=== PATIENT | male | born 1955 | race Two or more races ===

== ENCOUNTER 2022-04-30 11:08 | Outpatient (CLI) | payer OTHER, SELFPAY ==
[2022-04-30 21:26] LABS: Albumin* 4.5 g/dL (3.3-5.0); Chloride* 99 mmol/L (96-114); Sodium* 139 mmol/L (135-149)
[2022-04-30 21:27] LABS: Potassium* 4.4 mmol/L (3.6-5.1)
[2022-04-30 21:29] LABS: Alkaline Phosphatase* 73 U/L (40-150); Aspartate Amino Transferase* 31 U/L (12-35); Bilirubin Total* 0.3 mg/dL (0.1-1.5); Blood Urea Nitrogen* 19 mg/dL (7-30); Carbon Dioxide* 29 mmol/L (20-32); Cholesterol* 132 mg/dL (90-199); Creatinine* 0.7 mg/dL (0.5-1.5); Estimated Glomerular Filt Rate 102 ml/min; Glucose* 109 mg/dL (60-115); Total Protein* 7.8 g/dL (6.0-8.3); Triglycerides* 70 mg/dL (40-149)
[2022-04-30 21:30] LABS: Calcium* 8.5 mg/dL (8.4-10.6); HDL Cholesterol* 48 mg/dL (>=40); LDL Cholesterol Calculated 70 mg/dL (<100)
[2022-04-30 21:41] LABS: Total Protein Urine 5 mg/dL
[2022-04-30 21:46] LABS: Creatinine Urine 59.9 mg/dL
[2022-04-30 21:47] LABS: Microalbumin Creatinine Ratio 10 mg/g (0-30); Microalbumin Urine 1 mg/dL
[2022-04-30 22:18] LABS: Hepatitis C Virus Antibody* Negative (Negative)
[2022-04-30 22:22] LABS: Vitamin B12* 391 pg/mL (243-894)
[2022-04-30 22:28] LABS: Alanine Aminotransferase* 27 U/L (4-50)
[2022-05-02 15:07] LABS: Folate, Serum 20.6 ng/mL (>=5.9)
== END 2022-04-30 11:09 | disposition home or self-care (01) ==
PROVIDERS: PCP Family Medicine; Visit Provider Family Medicine
DX: Z00.00 Encounter for general adult medical examination without abnormal findings (principal); E11.9 Type 2 diabetes mellitus without complications; Z13.6 Encounter for screening for cardiovascular disorders; Z79.899 Other long term (current) drug therapy; Z11.59 Encounter for screening for other viral diseases; Z77.011 Contact with and (suspected) exposure to lead
CPT/HCPCS: 80053; 80061; 82043; 82570; 82607; 82746; 83655; 84156; 86803

== ENCOUNTER 2022-09-16 08:15 | Outpatient (CLI) | payer OTHER, SELFPAY | END 2022-09-16 08:16 | disposition home or self-care (01) | PROVIDERS: PCP Family Medicine; Visit Provider Family Medicine | DX: Z00.00 Encounter for general adult medical examination without abnormal findings (principal); D64.9 Anemia, unspecified; I10 Essential (primary) hypertension; R73.03 Prediabetes; E11.9 Type 2 diabetes mellitus without complications; Z13.6 Encounter for screening for cardiovascular disorders; Z12.5 Encounter for screening for malignant neoplasm of prostate; Z77.011 Contact with and (suspected) exposure to lead | CPT/HCPCS: 80053; 80061; 83655; 84153; 86787 ==

== ENCOUNTER 2022-10-17 08:06 | Outpatient (CLI) | payer OTHER, SELFPAY | END 2022-10-17 08:07 | disposition home or self-care (01) | LOC: FRMREF 08:20 | PROVIDERS: PCP Family Medicine; Visit Provider Family Medicine | DX: Z77.011 Contact with and (suspected) exposure to lead (principal); I10 Essential (primary) hypertension; D64.9 Anemia, unspecified | CPT/HCPCS: 83655 ==

== ENCOUNTER 2023-03-25 09:38 | Outpatient (CLI) | payer OTHER, SELFPAY ==
[2023-03-25 14:03] LABS: Total Protein Urine 12 mg/dL
[2023-03-25 14:06] LABS: Creatinine Urine 53.7 mg/dL
[2023-03-25 14:10] LABS: Microalbumin Creatinine Ratio 30 mg/g (0-30); Microalbumin Urine 2 mg/dL
[2023-03-25 14:35] LABS: Vitamin B12* 453 pg/mL (243-894)
== END 2023-03-25 09:39 | disposition home or self-care (01) ==
PROVIDERS: PCP Family Medicine; Visit Provider Family Medicine
DX: E11.9 Type 2 diabetes mellitus without complications (principal); I10 Essential (primary) hypertension; D64.9 Anemia, unspecified
CPT/HCPCS: 82043; 82570; 82607; 84156

== ENCOUNTER 2023-08-23 10:32 | Outpatient (REF) | payer OTHER, SELFPAY | END 2023-08-23 10:33 | disposition home or self-care (01) | LOC: NFLDREF 10:32 | PROVIDERS: PCP Family Medicine; Referring Provider Family Medicine; Visit Provider Nurse Practitioner Family | DX: R06.02 Shortness of breath (principal) | CPT/HCPCS: 80053; 83880 ==

== ENCOUNTER 2023-09-23 11:07 | Outpatient (CLI) | payer OTHER, SELFPAY | END 2023-09-23 11:08 | disposition home or self-care (01) | PROVIDERS: PCP Family Medicine; Visit Provider Family Medicine | DX: I10 Essential (primary) hypertension (principal); E11.9 Type 2 diabetes mellitus without complications; Z13.6 Encounter for screening for cardiovascular disorders; Z12.5 Encounter for screening for malignant neoplasm of prostate; Z77.011 Contact with and (suspected) exposure to lead; Z95.2 Presence of prosthetic heart valve | CPT/HCPCS: 80053; 80061; 82043; 82570; 82607; 83655; G0103 ==

== ENCOUNTER 2023-10-13 12:50 | Outpatient (CLI) | payer OTHER, SELFPAY ==
--- NOTE | 2023-10-13 13:00 | US_ITS ---
Patient: CK KERNS Facility:?[facility] Patient ID:?[id number] Site Patient ID:?[id number]. Site :?[id number] Study:?US-Abdomen AAA SCREENING-10/13/2023 1:47:22 PM Ordering Physician:ELICEO YAP Final Report: INDICATION: Screening for abdominal aortic aneurysm. Nicotine dependence. COMPARISON: None. TECHNIQUE: Richard scale and color Doppler images were acquired of the abdominal aorta and iliac arteries. FINDINGS: Sonographic imaging demonstrates scattered calcified plaque throughout the abdominal aorta. There is no evidence of aneurysm formation. The aorta measures 2.9 cm in diameter proximally, 2.3 cm in the midportion, and tapers to 1.9 cm distally. The common iliac arteries are patent and measure 1.3 cm on the right and 1.0 cm on the left. IMPRESSION: No evidence of abdominal aortic aneurysm. Dictated by Kaley Haines MD @ 10/14/2023 2:10:30 AM Signed by:?Kaley Haines MD @10/14/2023 2:10:30 AM (Electronic Signature)
== END 2023-10-13 12:51 | disposition home or self-care (01) ==
PROVIDERS: PCP Family Medicine; Visit Provider Family Medicine
DX: Z13.6 Encounter for screening for cardiovascular disorders (principal); Z87.891 Personal history of nicotine dependence
CPT/HCPCS: 76706

== ENCOUNTER 2024-02-02 07:32 | Outpatient (CLI) | payer OTHER, SELFPAY | END 2024-02-02 07:33 | disposition home or self-care (01) | LOC: FRMREF 07:32 | PROVIDERS: PCP Family Medicine; Visit Provider Family Medicine | DX: Z13.88 Encounter for screening for disorder due to exposure to contaminants (principal) | CPT/HCPCS: 83655 ==

== ENCOUNTER 2024-03-29 08:03 | Outpatient (CLI) | payer OTHER, SELFPAY | END 2024-03-29 08:04 | disposition home or self-care (01) | LOC: FRMREF 08:04 | PROVIDERS: PCP Family Medicine; Visit Provider Family Medicine | DX: Z77.011 Contact with and (suspected) exposure to lead (principal) | CPT/HCPCS: 83655 ==

== ENCOUNTER 2024-07-01 07:17 | Outpatient (CLI) | payer OTHER, SELFPAY | END 2024-07-01 07:18 | disposition home or self-care (01) | PROVIDERS: PCP Family Medicine; Visit Provider Family Medicine | DX: Z77.011 Contact with and (suspected) exposure to lead (principal); D69.6 Thrombocytopenia, unspecified; D64.9 Anemia, unspecified | CPT/HCPCS: 83655; 85045 ==

== ENCOUNTER 2024-08-04 14:38 | Outpatient (CLI) | payer OTHER, SELFPAY | END 2024-08-04 14:39 | disposition home or self-care (01) | LOC: RAD 14:40 | PROVIDERS: PCP Family Medicine; Visit Provider Family Medicine | DX: D64.9 Anemia, unspecified (principal); Z77.011 Contact with and (suspected) exposure to lead; D69.6 Thrombocytopenia, unspecified | CPT/HCPCS: 77080 ==

== ENCOUNTER 2024-08-23 14:26 | Outpatient (CLI) | payer OTHER, SELFPAY ==
--- NOTE | 2024-08-23 14:45 | CRLHL7_ITS ---
For Patients: As a result of the Century Cures Act, medical imaging exams and procedure reports are released immediately into your electronic medical record. You may view this report before your referring provider. If you have questions, please contact your health care provider. CLINICAL HISTORY: Thrombocytopenia COMPARISON: none TECHNIQUE: Real time valdivia scale imaging and color Doppler analysis was performed of the abdomen. FINDINGS: Sonographic imaging demonstrates normal size and coarsened/increased echotexture of the liver. Main portal vein is patent with antegrade flow measuring 13.3 cm/second. Main portal vein measures 8.8 millimeters. The spleen is of normal size. The pancreas appears normal. The proximal abdominal aorta and IVC appear normal. There is no evidence of ascites. The gallbladder is of normal size and there is no evidence of sludge or stones within the gallbladder lumen. The gallbladder wall measures 3.4 mm in thickness. The common bile duct measures 3.5 mm in size within the gumaro hepatis. Simple cyst right kidney measures 15 x 14 x 15 millimeters. The right kidney measures 10.6 cm in length and the left kidney measures 11.6 cm. There is no evidence of a renal calculus or hydronephrosis. IMPRESSION: Hepatic steatosis. Incidental simple right renal cyst. Exam otherwise unremarkable. No evidence of splenomegaly. Dictated by Christiano Reed MD @ 08/23/2024 8:16:23 PM (Electronically Signed)
== END 2024-08-23 14:27 | disposition home or self-care (01) ==
LOC: US 14:27
PROVIDERS: PCP Family Medicine; Visit Provider Internal Medicine Hematology & Oncology
DX: D69.6 Thrombocytopenia, unspecified (principal); K76.0 Fatty (change of) liver, not elsewhere classified; N28.1 Cyst of kidney, acquired; D64.9 Anemia, unspecified
CPT/HCPCS: 76700

== ENCOUNTER 2024-09-07 11:30 | Outpatient (RCR) | payer OTHER, SELFPAY ==
[2024-08-17 12:28] LABS: Hematocrit 37.7 % (37.0-53.0); Hemoglobin* 11.9 gm/dL (13.5-17.5); Immature Granulocytes Abs Auto 0.00 K/uL (0.00-0.30); Immature Granulocytes Pct Auto 0.0 %; Lymphocytes Absolute Auto 1.43 K/uL (0.90-2.90); Mean Corpuscular HGB Conc 32 gm/dL (32-36); Mean Corpuscular Hemoglobin 29 pg (26-34); Mean Corpuscular Volume 92 fL (80-100); RDW Coefficient of Variation % 14.9 % (11.5-15.5); Red Blood Count 4.09 m/uL (4.30-5.90); White Blood Count* 4.91 K/uL (4.50-11.00)
[2024-08-17 12:48] LABS: Slide Review Reflex No
[2024-08-17 14:51] LABS: Immature Reticulocyte Fraction 16.7 % (2.3-13.4); Reticulocyte Hemoglobin Equivi 31.8 pg (29.0-35.0); Reticulocytes Absolute 0.07 # (0.03-0.08)
[2024-08-17 15:26] LABS: Albumin* 4.2 g/dL (3.3-5.0); Chloride* 102 mmol/L (96-114); Potassium* 5.1 mmol/L (3.6-5.1); Sodium* 139 mmol/L (135-149)
[2024-08-17 15:28] LABS: Blood Urea Nitrogen* 25 mg/dL (7-30); Creatinine* 1.2 mg/dL (0.5-1.5); Est. Creatinine Clearance* 54.32; Estimated Glomerular Filt Rate 65 ml/min
[2024-08-17 15:29] LABS: Alanine Aminotransferase* 30 U/L (4-50); Alkaline Phosphatase* 40 U/L (40-150); Anion Gap 6 mEq/L (7-15); Aspartate Amino Transferase* 38 U/L (12-35); Bilirubin Total* 0.5 mg/dL (0.1-1.5); Calcium* 9.5 mg/dL (8.4-10.6); Carbon Dioxide* 31 mmol/L (20-32); Glucose* 101 mg/dL (60-115); Total Protein* 6.7 g/dL (6.0-8.3)
[2024-08-17 16:06] LABS: HIV 1/2/P24 Combo Screen* Negative (Negative)
[2024-08-17 16:19] LABS: Vitamin B12* 518 pg/mL (243-894)
[2024-08-17 17:29] LABS: Iron* 121 ug/dL (49-181)
[2024-08-17 17:38] LABS: Percent Iron Saturation 39 % (20-50); Total Iron Binding Capacity 309 ug/dL (261-462)
[2024-08-17 19:44] LABS: Hepatitis C Virus Antibody* Negative (Negative)
[2024-08-19 06:56] LABS: Folate, Serum >22.3 ng/mL (>=5.9)
[2024-08-19 10:25] LABS: Copper, Serum/Plasma 107.6 ug/dL (70.0-140.0)
[2024-08-19 23:30] LABS: Albumin 4.59 g/dL (3.75-5.01)
== END 2025-02-13 23:59 | disposition home or self-care (01) ==
LOC: CCIC 11:30
PROVIDERS: Clinical Nurse Specialist; PCP Family Medicine; Referring Provider Family Medicine; Visit Provider Internal Medicine Hematology & Oncology
DX: D69.6 Thrombocytopenia, unspecified (principal); D64.9 Anemia, unspecified; M06.9 Rheumatoid arthritis, unspecified
CPT/HCPCS: 36415; 80053; 82525; 82607; 82668; 82728; 82746; 83540; 83550; 84165; 84443; 85025; 85045; 86703; 86803; 99204; 99214; G0463

== ENCOUNTER 2024-10-25 11:12 | Outpatient (CLI) | payer OTHER, SELFPAY | END 2024-10-25 11:13 | disposition home or self-care (01) | PROVIDERS: PCP Family Medicine; Visit Provider Family Medicine | DX: I10 Essential (primary) hypertension (principal); E11.9 Type 2 diabetes mellitus without complications; Z79.84 Long term (current) use of oral hypoglycemic drugs; Z79.85 Long-term (current) use of injectable non-insulin antidiabetic drugs; Z79.899 Other long term (current) drug therapy; Z12.5 Encounter for screening for malignant neoplasm of prostate | CPT/HCPCS: 80053; 80061; 82043; 82570; 82607; G0103 ==

== ENCOUNTER 2024-12-06 14:49 | Outpatient (CLI) | payer OTHER, SELFPAY | END 2024-12-06 14:50 | disposition home or self-care (01) | LOC: FRMREF 14:50 | PROVIDERS: PCP Family Medicine; Visit Provider Family Medicine | DX: I10 Essential (primary) hypertension (principal); Z79.899 Other long term (current) drug therapy | CPT/HCPCS: 80048 ==

== ENCOUNTER 2025-01-03 13:04 | Outpatient (CLI) | payer OTHER, SELFPAY | END 2025-01-03 13:05 | disposition home or self-care (01) | LOC: FRMREF 13:04 | PROVIDERS: PCP Family Medicine; Visit Provider Family Medicine | DX: I10 Essential (primary) hypertension (principal) | CPT/HCPCS: 80048 ==

== ENCOUNTER 2025-03-14 07:31 | Outpatient (CLI) | payer OTHER, SELFPAY | END 2025-03-14 07:32 | disposition home or self-care (01) | LOC: FRMREF 07:32 | PROVIDERS: PCP Family Medicine; Visit Provider Family Medicine | DX: I10 Essential (primary) hypertension (principal); R53.83 Other fatigue | CPT/HCPCS: 80053 ==